=== PATIENT | female | born 1945 | race Caucasian/White ===

== ENCOUNTER → 2016-08-18 | Outpatient (CLI) | payer MEDICARE ==
[2016-08-18 11:23] LABS: HEMOGLOBIN 13.1 gm/dl (12.3-15.3); RED BLOOD COUNT 4.52 M/UL (4.00-5.10); WHITE BLOOD COUNT 9.5 K/UL (4.5-11.0)
== END ==
LOC: LAB 10:36
PROVIDERS: Internal Medicine
DX: E11.9 Type 2 diabetes mellitus without complications (principal); I12.9 Hypertensive chronic kidney disease with stage 1 through stage 4 chronic kidney disease, or unspecified chronic kidney disease; N18.9 Chronic kidney disease, unspecified; E78.5 Hyperlipidemia, unspecified; D51.8 Other vitamin B12 deficiency anemias; E55.9 Vitamin D deficiency, unspecified
CPT/HCPCS: 36415; 80053; 80061; 82043; 82570; 82607; 82746; 83036; 83970; 84100; 84443; 85025

== ENCOUNTER → 2016-10-25 | Outpatient (CLI) | payer MEDICARE | LOC: LAB 14:07 | PROVIDERS: Internal Medicine Nephrology | DX: I10 Essential (primary) hypertension (principal) | CPT/HCPCS: 36415; 80048 ==

== ENCOUNTER → 2020-11-24 | Outpatient (CLI) | payer MEDICARE ==
[~2020-11-24] MED LIST: ANTIVERT 25MG T25 MG PO
[2020-11-24 10:17] LABS: HEMOGLOBIN 12.6 gm/dl (12.3-15.3); RED BLOOD COUNT 4.38 M/UL (4.00-5.10); WHITE BLOOD COUNT 10.3 K/UL (4.5-11.0)
[2020-11-25 11:13] LABS: CREATININE, URINE 70.3 mg/dL (Not Estab.)
== END ==
LOC: LAB 09:29
PROVIDERS: Internal Medicine; Internal Medicine Nephrology
DX: R53.83 Other fatigue (principal); E55.9 Vitamin D deficiency, unspecified; J30.9 Allergic rhinitis, unspecified; E78.01 Familial hypercholesterolemia; E11.65 Type 2 diabetes mellitus with hyperglycemia; N02.8 Recurrent and persistent hematuria with other morphologic changes
CPT/HCPCS: 36415; 80053; 80061; 82043; 82570; 83036; 83970; 84100; 84156; 84439; 84443; 85025

== ENCOUNTER → 2021-04-02 | Outpatient (CLI) | payer MEDICARE ==
[2021-04-02 12:30] LABS: HEMOGLOBIN 12.6 gm/dl (12.3-15.3); RED BLOOD COUNT 4.28 M/UL (4.00-5.10); WHITE BLOOD COUNT 8.8 K/UL (4.5-11.0)
[2021-04-03 11:13] LABS: CREATININE, URINE 140.4 mg/dL (Not Estab.)
== END ==
LOC: LAB 11:27
PROVIDERS: Internal Medicine
DX: N02.8 Recurrent and persistent hematuria with other morphologic changes (principal); E78.5 Hyperlipidemia, unspecified; E55.9 Vitamin D deficiency, unspecified; J30.9 Allergic rhinitis, unspecified; R53.83 Other fatigue; E11.65 Type 2 diabetes mellitus with hyperglycemia
CPT/HCPCS: 36415; 80053; 80061; 82043; 82570; 83036; 84156; 84443; 85025

== ENCOUNTER → 2021-09-02 | Outpatient (CLI) | payer MEDICARE ==
[2021-09-02 10:23] LABS: HEMOGLOBIN 12.8 gm/dl (12.3-15.3); RED BLOOD COUNT 4.47 M/UL (4.00-5.10)
[2021-09-03 10:16] LABS: CREATININE, URINE 85.1 mg/dL (Not Estab.)
== END ==
LOC: LAB 09:38
PROVIDERS: Internal Medicine
DX: N02.8 Recurrent and persistent hematuria with other morphologic changes (principal); E78.5 Hyperlipidemia, unspecified; J30.9 Allergic rhinitis, unspecified; E55.9 Vitamin D deficiency, unspecified; R53.83 Other fatigue; E11.65 Type 2 diabetes mellitus with hyperglycemia
CPT/HCPCS: 36415; 80053; 80061; 82043; 82570; 83036; 84156; 84443; 85025

== ENCOUNTER 2021-09-12 14:51 | Observation (INO) | payer MEDICARE ==
[~2021-09-12] VITALS: Ht 167.6 cm; Wt 88.5 kg
[2021-09-12 16:19] LABS: HEMOGLOBIN 12.8 gm/dl (12.3-15.3); RED BLOOD COUNT 4.54 M/UL (4.00-5.10); WHITE BLOOD COUNT 10.7 K/UL (4.5-11.0)
[2021-09-12 16:44] LABS: BUN/CREATININE RATIO 12 (0-10)
[2021-09-14 04:07] LABS: HEMOGLOBIN 12.5 gm/dl (12.3-15.3); RED BLOOD COUNT 4.46 M/UL (4.00-5.10); WHITE BLOOD COUNT 8.1 K/UL (4.5-11.0)
[2021-09-14] MEDS ORDERED: CELEXA40 MG PO (17:01)
[2021-09-14] MEDS ORDERED: TRAZODONE HCL50 MG PO (17:02)
[2021-09-14] MEDS ORDERED: AMITRIPTYLINE H25 MG PO (17:02)
[2021-09-14] MEDS ORDERED: TOUJEO MAX300 UNIT/1 SQ (17:04)
[2021-09-14] MEDS ORDERED: OMEPRAZOLE40 MG PO (17:05)
[2021-09-14] MEDS ORDERED: PLAVIX 75 MG TA75 MG PO (17:10)
[2021-09-14] MEDS ORDERED: ATORVASTATIN CA20 MG PO (17:10)
[2021-09-14] MEDS ORDERED: ASPIRIN EC81 MG PO (17:10)
== END 2021-09-14 19:17 | disposition home or self-care (01) ==
LOC: ER1 14:51 → CDU 09-13 08:55 → M/S 09-13 08:55
PROVIDERS: Physician Assistant; ADMIT Internal Medicine
DX: G45.9 Transient cerebral ischemic attack, unspecified (principal); I69.398 Other sequelae of cerebral infarction; G93.89 Other specified disorders of brain; E11.22 Type 2 diabetes mellitus with diabetic chronic kidney disease; E78.5 Hyperlipidemia, unspecified; I13.10 Hypertensive heart and chronic kidney disease without heart failure, with stage 1 through stage 4 chronic kidney disease, or unspecified chronic kidney disease; I08.3 Combined rheumatic disorders of mitral, aortic and tricuspid valves; E87.1 Hypo-osmolality and hyponatremia; N18.4 Chronic kidney disease, stage 4 (severe); Z90.49 Acquired absence of other specified parts of digestive tract; Z79.82 Long term (current) use of aspirin; Z79.02 Long term (current) use of antithrombotics/antiplatelets; Z79.4 Long term (current) use of insulin; Z20.822 Contact with and (suspected) exposure to COVID-19
CPT/HCPCS: ECHO; 36415; 70450; 70496; 70498; 70551; 71045; 80048; 80053; 80061; 81001; 82550; 82553; 82962; 83735; 84132; 84484; 85025; 93005; 93306; 94664; 96372; 96374; 99285; G0378; J0360; J1644; J7030; Q9967; U0002

== ENCOUNTER → 2021-09-21 | Outpatient (CLI) | payer MEDICARE ==
[~2021-09-21] MED LIST changes: +AMITRIPTYLINE H25 MG PO; +ASPIRIN EC81 MG PO; +ATORVASTATIN CA20 MG PO; +CELEXA40 MG PO; +OMEPRAZOLE40 MG PO; +PLAVIX 75 MG TA75 MG PO; +TOUJEO MAX300 UNIT/1 SQ; +TRAZODONE HCL50 MG PO
== END ==
LOC: LAB 09:20
PROVIDERS: Internal Medicine Nephrology
DX: E87.5 Hyperkalemia (principal)
CPT/HCPCS: 36415; 80048

== ENCOUNTER → 2021-10-09 | Outpatient (CLI) | payer MEDICARE | LOC: EMI 13:18 | DX: G45.9 Transient cerebral ischemic attack, unspecified (principal); I67.9 Cerebrovascular disease, unspecified; G31.9 Degenerative disease of nervous system, unspecified; R90.82 White matter disease, unspecified | CPT/HCPCS: 70551 ==

== ENCOUNTER → 2021-11-11 | Outpatient (CLI) | payer MEDICARE | LOC: HEART 5 13:29 | DX: G45.9 Transient cerebral ischemic attack, unspecified (principal); I67.9 Cerebrovascular disease, unspecified ==

== ENCOUNTER → 2021-11-24 | Outpatient (CLI) | payer MEDICARE | LOC: LAB 09:22 | PROVIDERS: Internal Medicine Nephrology | DX: E55.9 Vitamin D deficiency, unspecified (principal); E87.5 Hyperkalemia; N02.8 Recurrent and persistent hematuria with other morphologic changes | CPT/HCPCS: 36415; 80053; 82570; 84156 ==

== ENCOUNTER → 2022-01-21 | Outpatient (CLI) | payer MEDICARE | LOC: LAB 09:19 | PROVIDERS: Internal Medicine Nephrology | DX: E55.9 Vitamin D deficiency, unspecified (principal); N18.32 Chronic kidney disease, stage 3b; N02.8 Recurrent and persistent hematuria with other morphologic changes | CPT/HCPCS: 36415; 80053; 82570; 83970; 84156 ==